=== PATIENT | male | born 1960 | race Caucasian/White ===

== ENCOUNTER 2023-04-17 13:33 | Emergency (ER) | payer SELFPAY ==
[~2023-04-17] VITALS: Ht 167.6 cm; Wt 73.0 kg
[2023-04-17 13:41] VITALS: O2SAT 99
[2023-04-17] MEDS: ACETAMINOPHEN 325MG TABLET PO ONE (15:17)
[2023-04-17] MEDS ORDERED: NAPR-681 MT (16:11)
[2023-04-17 16:42] VITALS: BP 127/74; PULSE 73; RESP 16; TEMP 97.9
== END 2023-04-17 16:54 | disposition home or self-care (01) ==
LOC: ER 14:04
DX: M25.572 Pain in left ankle and joints of left foot (principal)
CPT/HCPCS: 73562; 73610; 99284; Z7610